=== PATIENT | male | born 1985 | race Caucasian/White ===

== ENCOUNTER 2019-04-10 18:53 | Emergency (ER) | payer OTHER ==
[~2019-04-10] VITALS: Ht 193 cm; Wt 107.0 kg
--- NOTE | 2019-04-10 19:09 | ED.ADGEN ---
Adult General Chief Complaint Chief Complaint ".. I ve had this chest pain.. here on the Lt. ..it hurts with deep breaths... Cough.... does not seem to be getting better...".."It s been constant the last three days...." HPI HPI Patient is a 33 year old male [employer] who presents with Lt. mid axillary point chest wall tenderness at T-7 level. Pain is reproduced with cough, deep breaths, anterior posterior and side to side compressions of chest wall. Area of tenderness of appears approximately 1 cm area on direct palpation. Patient works out every day. Has lifted weights every other day. Patient undergoes PT testing frequently. Patient currently stationed at [employer].. No recent travel or specific trauma. . No specific ill contacts. No history of fever. No history of cough. No history cardiac disorder. No history of clotting disorders. Patient has had recent colonoscopy with polyp removal. Review of Systems Review of Systems Constitutional: Denies fever or chills [] Eyes: Denies change in visual acuity, redness, or eye pain [] HENT: Denies nasal congestion or sore throat [] Respiratory: Denies cough or shortness of breath [] Cardiovascular: No additional information not addressed in HPI [] GI: Denies abdominal pain, nausea, vomiting, bloody stools or diarrhea [] : Denies dysuria or hematuria [] Musculoskeletal: Denies back pain or joint pain [] Integument: Denies rash or skin lesions [] Neurologic: Denies headache, focal weakness or sensory changes [] Endocrine: Denies polyuria or polydipsia [] All other systems were reviewed and found to be within normal limits, except as documented in this note. Family History Family History Noncontributory Current Medications Current Medications Current Medications Medications (Trade) Dose Ordered Sig/Norma Start Time Stop Time Status Last Admin Dose Admin Iohexol (Omnipaque 350 Mg/ml) 100 ml 1X ONCE 04/10/19 20:30 04/10/19 20:31 DC 04/10/19 20:38 100 ML Ketorolac Tromethamine (Toradol 30mg Vial) 30 mg 1X ONCE 04/10/19 19:45 04/10/19 19:46 DC 04/10/19 19:53 30 MG Lactated Ringer's 1,000 ml @ 1,000 mls/hr Q1H 04/10/19 19:45 04/10/19 20:44 DC 04/10/19 19:53 1,000 MLS/HR Allergies Allergies Allergies Coded Allergies Type Severity Reaction Last Updated Verified No Known Drug Allergies 04/10/19 No Physical Exam Physical Exam Constitutional: Well developed, well nourished, no acute distress, non-toxic appearance. [] HENT: Normocephalic, atraumatic, bilateral external ears normal, oropharynx moist, no oral exudates, nose normal. [] Eyes: PERRLA, EOMI, conjunctiva normal, no discharge. [] Neck: Normal range of motion, no tenderness, supple, no stridor. [] Cardiovascular:Heart rate regular rhythm, no murmur [] Lungs & Thorax: Bilateral breath sounds clear to auscultation []. Point chest wall tenderness as per history of present illness Abdomen: Bowel sounds normal, soft, no tenderness, no masses, no pulsatile masses. [] Skin: Warm, dry, no erythema, no rash. [] Back: No tenderness, no CVA tenderness. [] Extremities: No tenderness, no cyanosis, no clubbing, ROM intact, no edema. [] No cording. Neurologic: Alert and oriented X 3, normal motor function, normal sensory function, no focal deficits noted. [] Psychologic: Affect anxious, judgement normal, mood normal. [] Current Patient Data Vital Signs Vital Signs Date Time Temp Pulse Resp B/P (MAP) Pulse Ox O2 Delivery O2 Flow Rate FiO2 04/10/19 21:18 66 16 120/82 (95) 95 Room Air 04/10/19 19:03 97.7 Lab Results Laboratory Tests Test 04/10/19 19:35 White Blood Count 9.6 x10^3/uL (4.0-11.0) Red Blood Count 5.46 x10^6/uL (4.30-5.70) Hemoglobin 15.4 g/dL (13.0-17.5) Hematocrit 46.1 % (39.0-53.0) Mean Corpuscular Volume 85 fL (79-100) Mean Corpuscular Hemoglobin 28 pg (25-35) Mean Corpuscular Hemoglobin Concent 33 g/dL (31-37) Red Cell Distribution Width 14.3 % (11.5-14.5) Platelet Count 244 x10^3/uL (140-400) Neutrophils (%) (Auto) 68 % (31-73) Lymphocytes (%) (Auto) 25 % (24-48) Monocytes (%) (Auto) 5 % (0-9) Eosinophils (%) (Auto) 1 % (0-3) Basophils (%) (Auto) 1 % (0-3) Neutrophils # (Auto) 6.5 x10^3uL (1.8-7.7) Lymphocytes # (Auto) 2.4 x10^3/uL (1.0-4.8) Monocytes # (Auto) 0.5 x10^3/uL (0.0-1.1) Eosinophils # (Auto) 0.1 x10^3/uL (0.0-0.7) Basophils # (Auto) 0.1 x10^3/uL (0.0-0.2) Prothrombin Time 9.5 SEC (9.4-11.4) Prothrombin Time INR 1.0 (0.9-1.1) PTT 28 SEC (23-33) D-Dimer (Sherrill) 0.55 mg/L (0.00-0.50) H Urine Collection Type Void Urine Color Yellow Urine Clarity Hazy Urine pH 6.0 Urine Specific Seguin 1.020 Urine Protein Neg (NEG-TRACE) Urine Glucose (UA) Neg mg/dL (NEG) Urine Ketones (Stick) Neg mg/dL (NEG) Urine Blood Neg (NEG) Urine Nitrite Neg (NEG) Urine Bilirubin Neg (NEG) Urine Urobilinogen Dipstick 0.2 mg/dL (0.2 mg/dL) Urine Leukocyte Esterase Neg (NEG) Urine RBC 0 /HPF (0-2) Urine WBC 0 /HPF (0-4) Urine Squamous Epithelial Cells Occ /LPF Urine Bacteria 0 /HPF (0-FEW) Sodium Level 142 mmol/L (136-145) Potassium Level 3.9 mmol/L (3.5-5.1) Chloride Level 105 mmol/L (98-107) Carbon Dioxide Level 29 mmol/L (21-32) Anion Gap 8 (6-14) Blood Urea Nitrogen 15 mg/dL (8-26) Creatinine 1.2 mg/dL (0.7-1.3) Estimated GFR (Cockcroft-Gault) 70.2 Glucose Level 93 mg/dL (70-99) Calcium Level 9.0 mg/dL (8.5-10.1) Magnesium Level 2.1 mg/dL (1.8-2.4) Total Bilirubin 0.4 mg/dL (0.2-1.0) Direct Bilirubin 0.1 mg/dL (0.0-0.2) Aspartate Amino Transferase (AST) 25 U/L (15-37) Alanine Aminotransferase (ALT) 32 U/L (16-63) Alkaline Phosphatase 73 U/L (46-116) Creatine Kinase 403 U/L (39-308) H Troponin I Quantitative < 0.017 ng/mL (0-0.055) SM-[id number]-[id number]-Type Natriuretic Peptide < 5 pg/mL (0-124) Total Protein 7.7 g/dL (6.4-8.2) Albumin 4.2 g/dL (3.4-5.0) EKG EKG My interpretation of EKG shows a sinus rhythm at 78 bpm. There is some nonspecific contour abnormalities anterior septal region. But no findings acute STEMI with contralateral changes.[] Radiology/Procedures Radiology/Procedures My interpretation of chest x-ray shows no acute cardiopulmonary findings. Does have some basilar bilateral atelectasis. My interpretation CT of chest shows no obvious central pulmonary embolism. No obvious infiltrate. Bibasilar atelectasis. See formal report when available.[] Course & Med Decision Making Course & Med Decision Making Pertinent Labs and Imaging studies reviewed. (See chart for details). Pt. to follow up with primary and review all ED labs and Xray and CT. Consider Stress Testing as indicated. Return if any concerns. Unable to Issue CT disc to pt. system down, but advised pt. it would be available tomorrow. Heart Score= 0 to 1 Pt. elects to be discharge. Take Tylenol and Ibuprofen for pain. [] Final Impression Final Impression 1.Chest Pain- appears to be Chest Wall 2. Min. elevation of D-dimer 0.55 Dragon Disclaimer Dragon Disclaimer This electronic medical record was generated, in whole or in part, using a voice recognition dictation system. Discharge Summary Visit Information Final Diagnosis Problems Medical Problems: (1) Chest wall pain Status: Acute Brief Hospital Course Allergies Allergies Coded Allergies Type Severity Reaction Last Updated Verified No Known Drug Allergies 04/10/19 No Vital Signs Vital Signs Date Time Temp Pulse Resp B/P (MAP) Pulse Ox O2 Delivery O2 Flow Rate FiO2 04/10/19 21:18 66 16 120/82 (95) 95 Room Air 04/10/19 19:03 97.7 Lab Results Laboratory Tests Test 04/10/19 19:35 White Blood Count 9.6 x10^3/uL (4.0-11.0) Red Blood Count 5.46 x10^6/uL (4.30-5.70) Hemoglobin 15.4 g/dL (13.0-17.5) Hematocrit 46.1 % (39.0-53.0) Mean Corpuscular Volume 85 fL (79-100) Mean Corpuscular Hemoglobin 28 pg (25-35) Mean Corpuscular Hemoglobin Concent 33 g/dL (31-37) Red Cell Distribution Width 14.3 % (11.5-14.5) Platelet Count 244 x10^3/uL (140-400) Neutrophils (%) (Auto) 68 % (31-73) Lymphocytes (%) (Auto) 25 % (24-48) Monocytes (%) (Auto) 5 % (0-9) Eosinophils (%) (Auto) 1 % (0-3) Basophils (%) (Auto) 1 % (0-3) Neutrophils # (Auto) 6.5 x10^3uL (1.8-7.7) Lymphocytes # (Auto) 2.4 x10^3/uL (1.0-4.8) Monocytes # (Auto) 0.5 x10^3/uL (0.0-1.1) Eosinophils # (Auto) 0.1 x10^3/uL (0.0-0.7) Basophils # (Auto) 0.1 x10^3/uL (0.0-0.2) Prothrombin Time 9.5 SEC (9.4-11.4) Prothromb Time International Ratio 1.0 (0.9-1.1) Activated Partial Thromboplast Time 28 SEC (23-33) D-Dimer (Sherrill) 0.55 mg/L (0.00-0.50) Urine Collection Type Void Urine Color Yellow Urine Clarity Hazy Urine pH 6.0 Urine Specific Seguin 1.020 Urine Protein Neg (NEG-TRACE) Urine Glucose (UA) Neg mg/dL (NEG) Urine Ketones (Stick) Neg mg/dL (NEG) Urine Blood Neg (NEG) Urine Nitrite Neg (NEG) Urine Bilirubin Neg (NEG) Urine Urobilinogen Dipstick 0.2 mg/dL (0.2 mg/dL) Urine Leukocyte Esterase Neg (NEG) Urine RBC 0 /HPF (0-2) Urine WBC 0 /HPF (0-4) Urine Squamous Epithelial Cells Occ /LPF Urine Bacteria 0 /HPF (0-FEW) Sodium Level 142 mmol/L (136-145) Potassium Level 3.9 mmol/L (3.5-5.1) Chloride Level 105 mmol/L (98-107) Carbon Dioxide Level 29 mmol/L (21-32) Anion Gap 8 (6-14) Blood Urea Nitrogen 15 mg/dL (8-26) Creatinine 1.2 mg/dL (0.7-1.3) Estimated GFR (Cockcroft-Gault) 70.2 Glucose Level 93 mg/dL (70-99) Calcium Level 9.0 mg/dL (8.5-10.1) Magnesium Level 2.1 mg/dL (1.8-2.4) Total Bilirubin 0.4 mg/dL (0.2-1.0) Direct Bilirubin 0.1 mg/dL (0.0-0.2) Aspartate Amino Transf (AST/SGOT) 25 U/L (15-37) Alanine Aminotransferase (ALT/SGPT) 32 U/L (16-63) Alkaline Phosphatase 73 U/L (46-116) Creatine Kinase 403 U/L (39-308) Troponin I Quantitative < 0.017 ng/mL (0-0.055) JU-Gmv-D-Type Natriuretic Peptide < 5 pg/mL (0-124) Total Protein 7.7 g/dL (6.4-8.2) Albumin 4.2 g/dL (3.4-5.0) Brief Hospital Course Mr. Olguin is a 33 old male who presented with point Lt. mid axillary chest wall tenderness. Suspect chest wall. Discharge Information Condition at Discharge: Improved, Stable Disposition/Orders: D/C to Home Dischare Medications Current Medications Lactated Ringer's 1,000 ml @ 1,000 mls/hr Q1H IV Last administered on 04/10/19at 19:53; Admin Dose 1,000 MLS/HR; Start 04/10/19 at 19:45; Stop 04/10/19 at 20:44; Status DC Ketorolac Tromethamine (Toradol 30mg Vial) 30 mg 1X ONCE IV Last administered on 04/10/19at 19:53; Admin Dose 30 MG; Start 04/10/19 at 19:45; Stop 04/10/19 at 19:46; Status DC Iohexol (Omnipaque 350 Mg/ml) 100 ml 1X ONCE IV Last administered on 04/10/19at 20:38; Admin Dose 100 ML; Start 04/10/19 at 20:30; Stop 04/10/19 at 20:31; Status DC Active Scripts Active Acetaminophen 500 Mg Tablet 1,000 Mg PO QIDPRN PRN Ibuprofen 800 Mg Tablet 800 Mg PO TIDPRN Dragon Disclaimer This chart was dictated in whole or in part using Voice Recognition software in a busy, high-work load, and often noisy Emergency Department environment. It may contain unintended and wholly unrecognized errors or omissions. NATALIA INGRAM MD April 10, 2019 19:09
--- NOTE | 2019-04-10 19:38 | RAD ---
Two-view chest dated 04/10/2019. No comparison available. Clinical data indication: Chest pain. FINDINGS: PA and lateral views obtained. Heart and mediastinal contours within normal limits. Lungs are clear without focal consolidation. Vascular interstitium within normal limits. No pleural effusion or pneumothorax. IMPRESSION: No acute radiographic abnormality. Electronically signed by: Kashmir Bradford MD (04/10/2019 7:35 PM) [facility]
[2019-04-10] MEDS ORDERED: IV RINGERS SOLUTION,LACTATED 1,000 ML IV SCH (19:45)
[2019-04-10] MEDS ORDERED: KETOROLAC 30 MG/ML VIAL. IV ONE (19:45)
--- NOTE | 2019-04-10 19:45 | EKG ---
[address] [address] Test Date: 2019-04-10 Test Time: 19:41:23 Pat Name: SHELLI HIDALGO Department: Room: Gender: M [employer]: : 1985 Requested By: NATALIA INGRAM Order Number: [id number] Reading MD: Measurements Intervals [place] Rate: 78 P: 49 WA: 142 QRS: 59 QRSD: 84 T: 36 QT: 360 QTc: 414 Interpretive Statements SINUS RHYTHM QRS(T) CONTOUR ABNORMALITY CONSIDER ANTEROSEPTAL MYOCARDIAL DAMAGE POSSIBLY ABNORMAL ECG RI6.01 No previous ECG available for comparison
[2019-04-10 19:48] LABS: BASO # 0.1 x10^3/uL (0.0-0.2); BASO % 1 % (0-3); EOS # 0.1 x10^3/uL (0.0-0.7); EOS % 1 % (0-3); HEMATOCRIT 46.1 % (39.0-53.0); HEMOGLOBIN 15.4 g/dL (13.0-17.5); LYMPH # 2.4 x10^3/uL (1.0-4.8); LYMPH % 25 % (24-48); MEAN CORPUSCULAR HEMOGLOBIN 28 pg (25-35); MEAN CORPUSCULAR HGB CONC 33 g/dL (31-37); MEAN CORPUSCULAR VOLUME 85 fL (79-100); MONO # 0.5 x10^3/uL (0.0-1.1); MONO % 5 % (0-9); NEUT # 6.5 x10^3uL (1.8-7.7); NEUT % 68 % (31-73); PLATELET COUNT 244 x10^3/uL (140-400); RED BLOOD COUNT 5.46 x10^6/uL (4.30-5.70); RED CELL DISTRIBUTION WIDTH 14.3 % (11.5-14.5); WHITE BLOOD COUNT 9.6 x10^3/uL (4.0-11.0)
[2019-04-10 19:58] LABS: BACTERIA,URINE 0 /HPF (0-FEW); BILIRUBIN,URINE NEG (NEG); CLARITY,URINE HAZY; COLOR,URINE YELLOW; GLUCOSE,URINE NEG (NEG); NITRITE,URINE NEG (NEG); RBC,URINE 0 /HPF (0-2); SQUAMOUS EPITHELIAL CELL,UR OCC /LPF; UROBILINOGEN,URINE 0.2 mg/dL (0.2 mg/dL); WBC,URINE 0 /HPF (0-4)
[2019-04-10 20:11] LABS: ALBUMIN 4.2 g/dL (3.4-5.0); ALK PHOS 73 U/L (46-116); ALT (SGPT) 32 U/L (16-63); ANION GAP 8 (6-14); AST (SGOT) 25 U/L (15-37); BLOOD UREA NITROGEN 15 mg/dL (8-26); CARBON DIOXIDE 29 mmol/L (21-32); CHLORIDE 105 mmol/L (98-107); CREATININE 1.2 mg/dL (0.7-1.3); DIRECT BILIRUBIN 0.1 mg/dL (0.0-0.2); GFR 70.2; GLUCOSE 93 mg/dL (70-99); MAGNESIUM 2.1 mg/dL (1.8-2.4); POTASSIUM 3.9 mmol/L (3.5-5.1); SODIUM 142 mmol/L (136-145); TOTAL BILIRUBIN 0.4 mg/dL (0.2-1.0); TOTAL PROTEIN 7.7 g/dL (6.4-8.2)
[2019-04-10] MEDS ORDERED: IOHEXOL 350 MG/ML 100 ML VIAL. IV ONE (20:30)
[2019-04-10 21:18] VITALS: BP 120/82
--- NOTE | 2019-04-10 21:18 | RAD ---
CTA chest with contrast dated 04/10/2019. No comparison available. Clinical data indication: Chest wall pain. Back pain. TECHNIQUE: Contiguous axial imaging the chest performed following the intravenous administration of iodinated contrast material. Study was performed as dedicated PE protocol with thin cut coronal MIPS 3-D reconstruction. Prescribed dose. FINDINGS: Contrast bolus is adequate. No evidence of central, lobar or segmental pulmonary embolus. Subsegmental branches are not well evaluated based on technique. Heart size mildly enlarged. No pericardial effusion. No mediastinal, hilar or axillary lymphadenopathy. Thyroid gland unremarkable. Central airways are patent. Minimal dependent groundglass opacity in the lower lobes, likely atelectasis. Lungs are otherwise clear. No consolidation or pleural effusion. No pneumothorax. Limited images of the upper abdomen unremarkable. No significant bony abnormality. IMPRESSION: 1. No evidence of central, lobar or segmental pulmonary embolus. 2. Dependent groundglass opacity at both lung bases, likely atelectasis. The lungs are otherwise clear. Electronically signed by: Kashmir Bradford MD (04/10/2019 9:15 PM) [facility]
[2019-04-10] MEDS ORDERED: ACET500T68 PO (21:34)
[2019-04-10] MEDS ORDERED: IBUP800T19 PO (21:34)
[2019-04-11] MEDS ORDERED: CYCL-331 PO (16:54)
== END 2019-04-10 21:48 | disposition home or self-care (01) ==
LOC: ER 18:53
DX: R07.89 Other chest pain (principal); R79.1 Abnormal coagulation profile
CPT/HCPCS: 36415; 71046; 71275; 80048; 80076; 81001; 82550; 83735; 83880; 84443; 84484; 85025; 85379; 85610; 85730; 93005; 96374; 99285; J1885; J7120; Q9967

== ENCOUNTER 2019-04-11 14:53 | Emergency (ER) | payer OTHER ==
[~2019-04-11] VITALS: Ht 193 cm; Wt 107.0 kg
[~2019-04-11 14:53] MED LIST: ACET500T68 PO; IBUP800T19 PO
--- NOTE | 2019-04-11 16:26 | RAD ---
CT Abdomen and Pelvis without contrast History: Left flank pain Technique: Noncontrast CT imaging was performed of the abdomen and pelvis. Multiplanar images are reviewed. Exposure: One or more of the following individualized dose reduction techniques were utilized for this examination: 1. Automated exposure control 2. Adjustment of the mA and/or kV according to patient size 3. Use of iterative reconstruction technique. Comparison: None Findings: There is no urolithiasis or hydronephrosis. Urinary bladder is distended. There is no adrenal nodularity. Accurate evaluation of the abdominal visceral organs is limited without intravenous contrast. There is accessory spleen. No obvious focal abnormality is identified of the liver, pancreas, spleen. Gallbladder is present without obvious intraluminal abnormality by CT. Accurate evaluation of bowel is limited without oral contrast, no significant bowel dilatation or free fluid, free air. There are multiple small mesenteric and retroperitoneal node since, not considered significantly enlarged. One of the larger right lower quadrant mesenteric nodes measures about 0.6 cm short axis dimension. Appendix is visualized without adjacent inflammatory change or dilatation. There is posterolateral fusion hardware at L4-5, also interbody graft at L4-5. Impression: 1. There is no urolithiasis or hydronephrosis. Urinary bladder is distended. No significant localized inflammatory type change is identified. Electronically signed by: Nima Cristobal MD (04/11/2019 4:22 PM) [facility]
[2019-04-11 16:38] VITALS: BP 141/67
--- NOTE | 2019-04-11 16:49 | PHYS DOC ---
Past History Past Medical History: No Pertinent History, Other Past Surgical History: Appendectomy, Other Alcohol Use: Heavy Drug Use: None Adult General Chief Complaint Chief Complaint: FLANK PAIN HPI HPI Patient is a 33 year old male who presents with complaint of left flank pain. Patient was seen in the emergency department yesterday with complaints of pain along the left chest wall. Patient had an extensive workup including CT angiography to rule out pulmonary embolism. Testing was negative for significant pathology. The patient was prescribed ibuprofen. Patient states that he went to get his medication filled today but started to notice worsening pain along his left flank. States that the pain worsens with movement and when he takes a deep breath. Denies any associated fever, vomiting, or loose stools. Has not taken any medications today for his symptoms. Due to worsening pain he came to the emergency department for reevaluation. Review of Systems Review of Systems Constitutional: Denies fever or chills [] Eyes: Denies change in visual acuity, redness, or eye pain [] HENT: Denies nasal congestion or sore throat [] Respiratory: Denies cough or shortness of breath [] Cardiovascular: Denies substernal chest pain or edema[] GI: Denies abdominal pain, nausea, vomiting, bloody stools or diarrhea [] : Denies dysuria or hematuria [] Musculoskeletal: Left flank pain[] Integument: Denies rash or skin lesions [] Neurologic: Denies headache, focal weakness or sensory changes [] All other systems were reviewed and found to be within normal limits, except as documented in this note. Allergies Allergies Allergies Coded Allergies Type Severity Reaction Last Updated Verified No Known Drug Allergies 04/10/19 No Physical Exam Physical Exam Constitutional: Alert, afebrile, appears in moderate discomfort. [] HENT: Normocephalic, atraumatic, bilateral external ears normal, oropharynx moist, no oral exudates, nose normal. [] Eyes: PERRLA, EOMI, conjunctiva normal, no discharge. [] Neck: Normal range of motion, no tenderness, supple, no stridor. [] Cardiovascular:Heart rate regular rhythm, no murmur [] Lungs & Thorax: Bilateral breath sounds clear to auscultation [] Abdomen: Bowel sounds normal, soft, no tenderness, no masses, no pulsatile masses. [] Skin: Warm, dry, no erythema, no rash. [] Back: Left CVA tenderness, no midline tenderness, paraspinous muscle tenderness along upper to mid lumbar region. [] Extremities: No tenderness, no cyanosis, no clubbing, ROM intact, no edema. [] Neurologic: Alert and oriented X 3, normal motor function, normal sensory function, no focal deficits noted. [] Current Patient Data Vital Signs Vital Signs Date Time Temp Pulse Resp B/P (MAP) Pulse Ox O2 Delivery O2 Flow Rate FiO2 04/11/19 16:14 80 18 131/87 (102) 96 Room Air 04/11/19 14:55 97.8 Lab Results Labs from yesterday reviewed, no new labs at today's visit EKG EKG Not performed[] Radiology/Procedures Radiology/Procedures [address] [address] IMAGING REPORT Signed PATIENT: SHELLI HIDALGO ACCOUNT: [id number] : 1985 LOCATION: ER AGE: 33 SEX: M EXAM STATUS: REG ER ORD. PHYSICIAN: GEENA CASTELLANO MD REASON: left flank pain PROCEDURE: CT ABDOMEN PELVIS WO CONTRAST CT Abdomen and Pelvis without contrast History: Left flank pain Technique: Noncontrast CT imaging was performed of the abdomen and pelvis. Multiplanar images are reviewed. Exposure: One or more of the following individualized dose reduction techniques were utilized for this examination: 1. Automated exposure control 2. Adjustment of the mA and/or kV according to patient size 3. Use of iterative reconstruction technique. Comparison: None Findings: There is no urolithiasis or hydronephrosis. Urinary bladder is distended. There is no adrenal nodularity. Accurate evaluation of the abdominal visceral organs is limited without intravenous contrast. There is accessory spleen. No obvious focal abnormality is identified of the liver, pancreas, spleen. Gallbladder is present without obvious intraluminal abnormality by CT. Accurate evaluation of bowel is limited without oral contrast, no significant bowel dilatation or free fluid, free air. There are multiple small mesenteric and retroperitoneal node since, not considered significantly enlarged. One of the larger right lower quadrant mesenteric nodes measures about 0.6 cm short axis dimension. Appendix is visualized without adjacent inflammatory change or dilatation. There is posterolateral fusion hardware at L4-5, also interbody graft at L4-5. Impression: 1. There is no urolithiasis or hydronephrosis. Urinary bladder is distended. No significant localized inflammatory type change is identified. Electronically signed by: Derrell Dorado MD (04/11/2019 4:22 PM) [facility] DICTATED AND SIGNED BY: DERRELL DORADO MD DATE: 04/11/19 1622 CC: IRAIDA MERINO MD; GEENA CASTELLANO MD ~ [] Course & Med Decision Making Course & Med Decision Making Pertinent Labs and Imaging studies reviewed. (See chart for details) Labs reviewed from yesterday's visit with no specific determination for cause of patient's pain symptoms. CT of the abdomen pelvis shows no acute pathology. Symptoms appear musculoskeletal in origin. Patient prescribed cyclobenzaprine in addition to ibuprofen prescribed yesterday's visit. Advised follow-up with primary doctor in the next 3-4 days for reevaluation and return to emergency department for any worsening symptoms. Patient was understanding and in agreement with treatment plan. Dragon Disclaimer Dragon Disclaimer This electronic medical record was generated, in whole or in part, using a voice recognition dictation system. Departure Departure: Impression: Primary Impression: Left flank pain Disposition: 01 HOME, SELF-CARE Condition: STABLE Referrals: IRAIDA MERINO MD (PCP) Patient Instructions: Flank Pain Additional Instructions: Follow-up with your primary doctor in the next 3-4 days for reevaluation. Return to the emergency department for any worsening symptoms. Scripts Cyclobenzaprine Hcl (CYCLOBENZAPRINE HCL) 10 Mg Tablet 1 TAB PO TID PRN for MUSCLE PAIN, #30 TAB Prov: GEENA CASTELLANO MD 04/11/19 GEENA CASTELLANO MD April 11, 2019 16:49
[2019-04-11] MEDS ORDERED: CYCL-331 PO (16:54)
== END 2019-04-11 16:58 | disposition home or self-care (01) ==
LOC: ER 14:53
DX: R10.9 Unspecified abdominal pain (principal); R07.89 Other chest pain; F10.20 Alcohol dependence, uncomplicated; Z90.89 Acquired absence of other organs; Y90.9 Presence of alcohol in blood, level not specified
CPT/HCPCS: 74176; 99284-25